=== PATIENT | female | born 1960 | race Hispanic/Latino ===

== ENCOUNTER 2017-09-12 15:31 | Outpatient (CLI) | payer MEDICARE, OTHER | END 2017-09-12 15:32 | disposition home or self-care (01) | LOC: SPVWC 15:31 | PROVIDERS: ATTEND Internal Medicine Hematology & Oncology | DX: M79.605 Pain in left leg (principal); M79.89 Other specified soft tissue disorders; D68.69 Other thrombophilia; K04.7 Periapical abscess without sinus ==